=== PATIENT | female | born 1985 | race Two or more races ===

== ENCOUNTER 2020-01-12 06:53 | Emergency (ER) | payer SELFPAY ==
[~2020-01-12] VITALS: Ht 167.6 cm; Wt 65.8 kg
[2020-01-12 07:08] VITALS: BP 114/68
--- NOTE | 2020-01-12 07:18 | NUR ---
ED Nurse Note: Pt from home came in due to lower abd pain radiating to back 05/29. Pt was diagnosed with UTI 10 days ago and takes anitbiotic but did not help. AAO x4 and ambulatory.
[2020-01-12] MEDS ORDERED: Acetaminophen 500mg (ES) tab ORAL ONE (07:30)
--- NOTE | 2020-01-12 07:33 | Emergency Room Report ---
History of Present Illness General Chief Complaint: Female Urogenital Problems Source: Patient Present Illness HPI Patient presents with suprapubic pain and dysuria. She was started on Keflex for presumptive UTI via telemedicine. She has been on it for 5 days but still has significant dysuria and discomfort. The pain radiated somewhat to her back and she was concerned about a possible kidney infection. She has not had documented fevers but felt feverish. There is no chills. No nausea vomiting or diarrhea. Her last menstruation was 2 weeks ago and she is on the control pill. She does not believe she is at this time. She has had multiple UTIs in the past but this 1 is associated with more discomfort. She rates the pain 10/10. She took Pyridium this morning. No history of renal stones. No URI sy. Allergies: Coded Allergies: No Known Allergies (Unverified , 01/12/20) COVID-19 Screening Contact w/high risk pt: No Recent Travel to affected area: No Experienced COVID-19 symptoms?: No COVID-19 Testing performed [facility] APPRENTICE: No Patient History Past Medical History: see triage record Social History: Reports: alcohol use - rare; Denies: smoking Social History Narrative office Last Menstrual Period: 12/28/2019 Now: No Reviewed Nursing Documentation: PMH: Agreed; PSxH: Agreed Nursing Documentation-PMH Hx Seizures: Yes Review of Systems Constitutional: Reports: see HPI Respiratory: Denies: cough Cardiovascular: Denies: chest pain Gastrointestinal: Reports: see HPI Genitourinary: Reports: see HPI Musculoskeletal: Reports: see HPI Skin: Denies: rash Neurological: Denies: headache Physical Exam Vital Signs Date Time Temp Pulse Resp B/P (MAP) Pulse Ox O2 Delivery O2 Flow Rate FiO2 01/12/20 07:08 98.2 102 18 114/68 96 Room Air Sp02 EP Interpretation: reviewed, normal General Appearance: well appearing, no apparent distress, GCS 15 Head: normocephalic Eyes: bilateral eye normal inspection, bilateral eye PERRL ENT: moist mucus membranes Respiratory: normal inspection Cardiovascular #1: regular rate, rhythm Cardiovascular #2: 2+ radial (R) Gastrointestinal: normal inspection, non tender, soft, no guarding, no rebound Genitourinary: no CVA tenderness Musculoskeletal: gait/station normal Neurologic: alert Medical Decision Making Diagnostic Impression: Primary Impression: UTI (urinary tract infection) Qualified Codes: N30.01 - Acute cystitis with hematuria Additional Impression: Suprapubic pain ER Course Patient presents with dysuria after taking Keflex for 5 days. Differential includes resistant bacteria, partially treated urinary tract infection, pyelonephritis, renal stone, ovarian cyst, ectopic , appendicitis amongst others. Based on exam pyelonephritis is less likely as there is no CVA tenderness at this time and the patient has not had documented fever. Also, as no fever and no nausea, this would be an atypical presentation of appendicitis. Evaluation initially with urinalysis and test. Tylenol will be administered. Consideration of switching from Keflex to Macrobid. If test is positive the patient will have pelvic ultrasound. Preg neg. Pyuria. Macrobid given. Patient improved with decreased pain. Discussed results with patient and plan for follow-up with outpatient observation. Message left with patient that pain persists, consider return to ED for further evaluation with labs and possible ultrasound and/or CT. Laboratory Tests Test 01/12/20 07:20 Urine Color [place] Urine Appearance Slightly cloudy Urine pH 5 (4.5-8.0) Urine Specific [place] 1.015 (1.005-1.035) Urine Protein 3+ (NEGATIVE) H Urine Glucose (UA) Negative (NEGATIVE) Urine Ketones Negative (NEGATIVE) Urine Blood 5+ (NEGATIVE) H Urine Nitrite Negative (NEGATIVE) Urine Bilirubin 3+ (NEGATIVE) H Urine Ictotest Negative (NEGATIVE) Urine Urobilinogen 8 MG/DL (0.0-1.0) H Urine Leukocyte Esterase 3+ (NEGATIVE) H Urine RBC 40-60 /HPF (0 - 2) H Urine WBC 60-80 /HPF (0 - 2) H Urine Squamous Epithelial Cells Few /LPF (NONE/OCC) Urine Bacteria Few /HPF (NONE) Urine HCG, Qualitative Negative (NEGATIVE) Last Vital Signs Date Time Temp Pulse Resp B/P (MAP) Pulse Ox O2 Delivery O2 Flow Rate FiO2 01/12/20 08:15 97.9 98 16 122/76 99 Room Air Status: improved Disposition: HOME, SELF-CARE Condition: Improved Scripts Acetaminophen (Tylenol) 325 Mg Tablet 650 MG ORAL Q6H PRN for Prn Pain/Headache/Temp > 101, #16 TAB 0 Refills Prov: John Esparza MD 01/12/20 Ibuprofen* (MOTRIN*) 600 Mg Tablet 600 MG ORAL Q8H PRN for FOR PAIN, #12 TAB 0 Refills Prov: John Esparza MD 01/12/20 Phenazopyridine Hcl* (PYRIDIUM*) 200 Mg Tablet 200 MG ORAL THREE TIMES A DAY, #9 TAB 0 Refills Prov: John Esparza MD 01/12/20 Nitrofurantoin Monohyd/M-Cryst* (MACROBID 100 MG*) 100 Mg Capsule 100 MG ORAL EVERY 12 HOURS, #14 CAP Prov: John Esparza MD 01/12/20 John Esparza MD January 12, 2020 07:33
[2020-01-12 07:34] LABS: APPEARANCE,URINE SLIGHTLY CLOUDY; BILIRUBIN, URINE 3+ (NEGATIVE); GLUCOSE, URINE (UA) NEGATIVE (NEGATIVE); KETONES,URINE NEGATIVE (NEGATIVE); LEUKOCYTE ESTERASE ,URINE 3+ (NEGATIVE); PH,URINE 5 (4.5-8.0); PROTEIN,URINE 3+ (NEGATIVE); UROBILINOGEN,URINE 8 MG/DL (0.0-1.0)
[2020-01-12] MEDS ORDERED: Phenazopyridine 200mg tab ORAL ONE (07:45)
[2020-01-12 07:49] LABS: COLOR,URINE ORANGE
[2020-01-12 07:50] LABS: NITRITE,URINE NEGATIVE (NEGATIVE)
[2020-01-12] MEDS ORDERED: NITROFURANTOIN100 M2 ORAL (08:08)
[2020-01-12] MEDS ORDERED: TYLENOL325 MG ORAL (08:08)
[2020-01-12] MEDS ORDERED: IBUPROFEN600 M1 ORAL (08:08)
[2020-01-12] MEDS ORDERED: PHENAZOPYRIDIN200 MG ORAL (08:08)
[2020-01-12 08:15] VITALS: BP 122/76
--- NOTE | 2020-01-12 08:15 | NUR ---
ER DISCHARGE NOTE: Patient is cleared to be discharged per ERMD, pt is aox4, on room air, with stable vital signs. pt was given dc and prescription instructions, pt was able to verbalize understanding, pt id band removed. pt is able to ambulate with steady gait. pt took all belongings.
== END 2020-01-12 08:15 | disposition home or self-care (01) ==
LOC: EMR 07:25
DX: N30.01 Acute cystitis with hematuria (principal); R10.2 Pelvic and perineal pain; Z79.3 Long term (current) use of hormonal contraceptives; G40.909 Epilepsy, unspecified, not intractable, without status epilepticus
CPT/HCPCS: 81003; 81025; 87086; 99283